=== PATIENT | female | born 1985 | race Caucasian/White ===

== ENCOUNTER 2018-04-20 20:43 | Emergency (ER) | payer SELFPAY ==
[2018-04-20 20:44] VITALS: BMI 24.5
--- NOTE | 2018-04-20 21:30 | C.PDOC ---
Chief Complaint (Nursing): Abdominal Pain Past Medical History Vital Signs: Last Vital Signs Temp 98.5 F 04/20/18 20:54 Pulse 82 04/20/18 20:54 Resp 16 04/20/18 20:54 BP 128/75 04/20/18 20:54 Pulse Ox 100 04/20/18 20:54 - Medical History PMH: Anxiety, Migraine - [facility] Procedures CLOSURE SKIN & SUBCUTANEOUS NEC (03/08/15) TETANUS TOXOID ADMINIST (03/08/15) Family History: States: Unknown Family Hx - Social History Hx Tobacco Use: Yes Hx Alcohol Use: No Hx Substance Use: No - Immunization History Hx Tetanus Toxoid Vaccination: Yes (2 YEARS) Hx Influenza Vaccination: No Hx Pneumococcal Vaccination: No ED Course And Treatment O2 Sat by Pulse Oximetry: 100 Disposition - Disposition
--- NOTE | 2018-04-20 21:32 | C.PDOC ---
History Of Present Illness 33-year-old female, approximately 4 months , presents to the ED complaining of diffuse lower abdominal pain for past 4-5 weeks, worsening over the past 3-4 days. Pain is now radiating to her right flank and right back. Otherwise patient denies any dysuria, urinary frequency, fever, vaginal bleeding , discharge, nausea, vomiting, or other complaints. No other significant PMHx or surgical history. LMP was in December. Of note, patient is currently not receiving any primary or care. Time Seen by Provider: 04/20/18 21:25 Chief Complaint (Nursing): Abdominal Pain History Per: Patient History/Exam Limitations: no limitations Onset/Duration Of Symptoms: Days Current Symptoms Are (Timing): Worse Past Medical History Reviewed: Historical Data, Nursing Documentation, Vital Signs Vital Signs: Last Vital Signs Temp 98.4 F 04/21/18 00:45 Pulse 84 04/21/18 00:45 Resp 16 04/21/18 00:45 BP 118/75 04/21/18 00:45 Pulse Ox 100 04/21/18 00:45 - Medical History PMH: Anxiety, Migraine - [facility] Procedures CLOSURE SKIN & SUBCUTANEOUS NEC (03/08/15) TETANUS TOXOID ADMINIST (03/08/15) Family History: States: Unknown Family Hx - Social History Hx Tobacco Use: Yes Hx Alcohol Use: No Hx Substance Use: No - Immunization History Hx Tetanus Toxoid Vaccination: Yes (2 YEARS) Hx Influenza Vaccination: No Hx Pneumococcal Vaccination: No Review Of Systems Except As Marked, All Systems Reviewed And Found Negative. Constitutional: Negative for: Fever, Chills Gastrointestinal: Positive for: Abdominal Pain. Negative for: Nausea, Vomiting Genitourinary: Negative for: Dysuria, Frequency, Vaginal Discharge, Vaginal Bleeding Musculoskeletal: Positive for: Back Pain (and right flank) Physical Exam - Physical Exam Appears: Non-toxic, No Acute Distress Skin: Warm, Dry Head: Atraumatic, Normacephalic Eye(s): bilateral: PERRL, EOMI, Other (Conjunctiva pink) Nose: Normal Oral Mucosa: Moist Neck: Normal ROM, Supple Chest: Symmetrical Cardiovascular: Rhythm Regular, No Murmur Respiratory: Normal Breath Sounds, No Rales, No Rhonchi, No Wheezing Gastrointestinal/Abdominal: Bowel Sounds (active), Soft, No Tenderness (to McBurney's point), No Guarding, No Rebound, Other (Gravid uterus, fundal height approximately half way between the pubic symphysis and umbilicus) Back: CVA Tenderness (mild right-sided flank and CVA tenderness) Extremity: Bilateral: Atraumatic, Normal Color And Temperature (without edema, clubbing, or cyanosis), Normal ROM Pulses: Left Dorsalis Pedis: Normal, Right Dorsalis Pedis: Normal Neurological/Psych: Oriented x3, Normal Speech, Other (Non-focal neuro exam) ED Course And Treatment - Laboratory Results Result Diagrams: 04/20/18 22:22 04/20/18 22:22 O2 Sat by Pulse Oximetry: 100 (RA) Pulse Ox Interpretation: Normal - CT Scan/US Pelvic US Other Rad Studies (CT/US): Read By Radiologist, Radiology Report Reviewed CT/US Interpretation: IMPRESSION: 17 week, 0 day intrauterine with heart motion. No acute abnormality identified on this limited exam. Please see above for a full description. Thank you for allowing us to participate in the care of your patient. Dictated and Authenticated by: Miri Kraus MD. 04/21/2018 12:22 AM Eastern Time ([place] & [place]) Medical Decision Making Medical Decision Making: Impression: Lower abdominal pain in 16 week gestation female Time: 21:28 Initial Plan: --Routine labs --Pelvic/Transvag Ultrasound --Urinalysis --Reevaluation Disposition - Disposition Referrals: Michell Trinh [Outside] Disposition: HOME/ ROUTINE Disposition Time: 04:00 Condition: FAIR Prescriptions: Penicillin VK [Penicillin VK Tab] 500 mg PO QID #28 tab Vit No.126/Iron/Folic [Classic Tablet] 1 each PO DAILY #30 tablet Instructions: Morning Sickness (DC), How to Plan and Prepare for a Healthy , Round Ligament Pain Forms: [employer] (Kyrgyz) Print Language: TURKMEN - Clinical Impression Clinical Impression: Round ligament pain - Scribe Statement The provider has reviewed the documentation as recorded by the Scribe (Hien Carter) Provider Attestation: All medical record entries made by the Scribe were at my direction and personally dictated by me. I have reviewed the chart and agree that the record accurately reflects my personal performance of the history, physical exam, medical decision making, and the department course for this patient. I have also personally directed, reviewed, and agree with the discharge instructions and disposition.
[2018-04-20 22:25] LABS: BASO # 0.1 K/uL (0.0-0.2); BASO % 0.6 % (0.0-2.0); EOS # 0.1 K/uL (0.0-0.7); EOS % 0.8 % (0.0-4.0); HEMOGLOBIN 12.3 g/dL (11.0-16.0); LYMPH # 3.2 K/uL (1.0-4.3); LYMPH % 23.9 % (20.0-40.0); MEAN CELL VOLUME 87.1 fL (81.0-99.0); MEAN CORPUSCULAR HEMOGLOBIN 29.9 pg (27.0-31.0); MEAN CORPUSCULAR HGB CONC 34.4 g/dL (33.0-37.0); MEAN PLATELET VOLUME 8.9 fL (7.2-11.7); MONO # 1.1 K/uL (0.0-0.8); NEUT # 8.8 K/uL (1.8-7.0); NEUT % 66.7 % (50.0-75.0); RBC 4.11 Mil/uL (3.80-5.20); RED CELL DISTRIBUTION WIDTH 12.7 % (11.5-14.5); WHITE BLOOD COUNT 13.3 K/uL (4.8-10.8)
[2018-04-20 22:28] LABS: SQUAMOUS EPITHIAL 3 /hpf (0-5); URINE BILIRUBIN NEGATIVE (NEGATIVE); URINE BLOOD NEGATIVE (NEGATIVE); URINE CLARITY Clear (Clear); URINE COLOR Yellow (YELLOW); URINE GLUCOSE (UA) NORMAL (Normal); URINE LEUKOCYTE ESTERASE NEG Leu/uL (Negative); URINE PROTEIN NEGATIVE (NEGATIVE); URINE UROBILINOGEN NORMAL mg/dL (0.2-1.0)
[2018-04-20 22:38] LABS: ALBUMIN 3.7 g/dL (3.5-5.0); ALT/SGPT 19 U/L (9-52); AST/SGOT 19 U/L (14-36); BLOOD UREA NITROGEN 10 mg/dL (7-17); CALCIUM 9.1 mg/dl (8.6-10.4); GFR AFRICAN-AMERICAN > 60; GFR NON-AFRICAN AMERICAN > 60
--- NOTE | 2018-04-21 00:22 | US ---
EXAM: US Uterus, Limited EXAM DATE/TIME: 04/20/2018 9:29 PM CLINICAL HISTORY: 33 years old, female; Pain; complicated by abdominal or pelvic pain; Lower; Second trimester; Gestational age or lmp: 12/26/17; TECHNIQUE: Real-time ultrasound of the maternal uterus (limited) with image documentation. COMPARISON: No relevant prior studies available. FINDINGS: Single fetus identified, transverse position. Calculated sonographic gestational age is 17 weeks, 0 days. Estimated delivery date is 09/28/2018. Estimated weight is 6 ounces, at the 82nd percentile. heart motion visualized, at 146 beats/min. Limited assessment of the anatomy on this exam. The cord insertion, stomach, and 4 chamber heart are seen, and appear grossly normal. The remainder of the anatomy is suboptimally evaluated. Fundal location of the placenta. No evidence of placental abruption or placenta previa. LUKE was not measured. Amniotic fluid volume appears subjectively to be grossly normal in amount. Cervical length is 3.9 cm (normal greater than 3 cm), measured transabdominally. IMPRESSION: 17 week, 0 day intrauterine with heart motion. No acute abnormality identified on this limited exam. Please see above for a full description.
[2018-04-21 00:24] VITALS: O2SAT 100
[2018-04-21 00:46] VITALS: BP 118/75; PULSE 84; RESP 16; TEMP 98.4
== END 2018-04-21 00:46 | disposition home or self-care (01) ==
LOC: C.ER 20:43
DX: O26.892 Other specified pregnancy related conditions, second trimester (principal); Z3A.16 16 weeks gestation of pregnancy; R10.2 Pelvic and perineal pain